=== PATIENT | female | born 1990 | race Asian ===

== ENCOUNTER 2020-09-02 12:15 | Inpatient (IN) ==
[2020-09-02] MEDS ORDERED: Buffered Lidocaine 1% SYRIN 1 ml INTRADERM ONE (13:02)
[2020-09-02] MEDS ORDERED: Lactated Ringers 1000 ml BAG 1,000 ML IV ONE ×2 (13:02→18:40)
[2020-09-02 13:36] LABS: ABS Eosinophils 0.1 10^3/ul (0-0.6); ABS Lymphocytes 1.5 10^3/ul (1.0-4.8); ABS Monocytes 0.5 10^3/ul (0-0.8); ABS Neutrophils 4.4 10^3/ul (1.5-7.7); Eosinophil % 0.8 %; Hematocrit 41 % (35-47); Hemoglobin 13.7 g/dL (12.0-16.0); Lymphocyte % 22.6 %; Mean Corpuscular HGB Conc 34 g/dL (31-36); Mean Corpuscular Hemoglobin 32 pg (27-31); Mean Corpuscular Volume 95 fL (80-97); Mean Platelet Volume 9.6 fL (7.4-10.4); Nucleated Red Blood Cells % 0.1; Platelet Count 126 10^3/uL (150-450); Red Blood Count 4.28 10^6 /uL (3.70-4.87); Red Cell Distribution Width 14 % (10-15); White Blood Count 6.5 10^3/uL (3.5-10.8)
[2020-09-02 14:08] LABS: Urine Benzodiazepine Screen None Detected (None Detect); Urine Cannabinoids Screen None Detected (None Detect); Urine Opiates Screen None Detected (None Detect)
[2020-09-02] MEDS: Lactated Ringers 1000 ml BAG 1,000 ML IV SCH ×2 (14:28→20:15)
[2020-09-02] MEDS ORDERED: Oxytocin in LR 20 UNITS/1,000 ML BAG IVPB SCH (15:00)
[2020-09-02] MEDS ORDERED: OBEPIDURAL 250 ML EPIDURAL ONE (17:50)
[2020-09-02] MEDS ORDERED: Sodium Citrate/Citric Acid LIQ 15 ML UDC PO PRN (18:40)
[2020-09-02] MEDS ORDERED: Lactated Ringers 1000 ml BAG 1,000 ML IV SCH (19:00)
[2020-09-03] MEDS ORDERED: fentaNYL 100 mcg/2 ml 50 MCG/ML VIAL ONE (03:53)
[2020-09-03] MEDS ORDERED: Lidocaine 1% MPF 5 ML VIAL ONE (03:53)
[2020-09-03] MEDS ORDERED: Dibucaine 1% OINT 28.35 GM TUBE PR PRN (04:25)
[2020-09-03] MEDS ORDERED: Witch Hazel PAD JAR TOPICAL PRN (04:25)
[2020-09-03] MEDS ORDERED: Methylergonovine 0.2 mg AMPULE 1 ml AMP IM ONE (04:25)
[2020-09-03] MEDS ORDERED: Glycerin ADULT 2.4 gm SUPP PR PRN (04:25)
[2020-09-03] MEDS ORDERED: Lactated Ringers 1000 ml BAG 1,000 ML IV SCH (05:00)
[2020-09-03] MEDS ORDERED: Oxytocin in LR 20 UNITS/1,000 ML BAG IVPB SCH (05:00)
[2020-09-03 05:43] LABS: ABS Lymphocytes 0.6 10^3/ul (1.0-4.8); ABS Monocytes 0.9 10^3/ul (0-0.8); ABS Neutrophils 12.7 10^3/ul (1.5-7.7); Hematocrit 34 % (35-47); Hemoglobin 11.6 g/dL (12.0-16.0); Mean Corpuscular HGB Conc 34 g/dL (31-36); Mean Corpuscular Hemoglobin 32 pg (27-31); Mean Corpuscular Volume 94 fL (80-97); Mean Platelet Volume 10.4 fL (7.4-10.4); Platelet Count 111 10^3/uL (150-450); Red Blood Count 3.58 10^6 /uL (3.70-4.87); Red Cell Distribution Width 13 % (10-15); White Blood Count 14.2 10^3/uL (3.5-10.8)
[2020-09-03] MEDS ORDERED: ceFAZolin 1 GM ADVAN 1 GM in NS 0.9% 50 ML 50 ML IVPB ONE (05:44)
[2020-09-03 05:48] LABS: Platelet Count 111 10^3/ul (150-450)
[2020-09-03 06:22] LABS: Activated Partial Thrombo Time 23.9 seconds (26.0-38.0); Fibrinogen 353.9 mg/dL (110.8-404.3); INR 0.93 (0.82-1.09)
[2020-09-03 07:16] LABS: Schistocytes ABSENT
[2020-09-03] MEDS: Lactated Ringers 1000 ml BAG 1,000 ML IV SCH ×2 (07:55→16:41)
[2020-09-03] MEDS: OBEPIDURAL 250 ML EPIDURAL SCH (09:02)
[2020-09-03 09:10] LABS: Urine Appearance Cloudy; Urine Bilirubin Negative (Negative); Urine Blood 3+ (Negative); Urine Glucose Negative (Negative); Urine Ketones 2+ (Negative); Urine Nitrite Negative (Negative); Urine Protein 2+(100 mg/dL) (Negative); Urine Specific Gravity 1.016 (1.002-1.030); Urine Urobilinogen Negative (Negative)
[2020-09-03 09:15] LABS: Urine Color Amber
[2020-09-03 09:17] LABS: Urine Bacteria Absent (Absent); Urine Red Blood Cell 3+(>10/hpf) (Absent); Urine White Blood Cell 1+(6-10/hpf) (Absent)
[2020-09-03 11:59] LABS: ABS Lymphocytes 1.3 10^3/ul (1.0-4.8); ABS Monocytes 0.8 10^3/ul (0-0.8); ABS Neutrophils 10.9 10^3/ul (1.5-7.7); Eosinophil % 0.1 %; Hematocrit 31 % (35-47); Hemoglobin 10.8 g/dL (12.0-16.0); Lymphocyte % 9.8 %; Mean Corpuscular HGB Conc 35 g/dL (31-36); Mean Corpuscular Hemoglobin 33 pg (27-31); Mean Corpuscular Volume 93 fL (80-97); Mean Platelet Volume 10.4 fL (7.4-10.4); Platelet Count 114 10^3/uL (150-450); Red Blood Count 3.32 10^6 /uL (3.70-4.87); Red Cell Distribution Width 14 % (10-15)
[2020-09-03] MEDS ORDERED: Ammonia Inhalant 1 EA AMP ONE ×2 (14:05→21:38)
[2020-09-04] MEDS ORDERED: Lidocaine 1% VIAL 10 MG/ML VIAL ONE (00:41)
[2020-09-04 08:37] LABS: ABS Basophils 0.1 10^3/ul (0-0.2); ABS Lymphocytes 1.3 10^3/ul (1.0-4.8); ABS Monocytes 0.6 10^3/ul (0-0.8); ABS Neutrophils 9.9 10^3/ul (1.5-7.7); Eosinophil % 0.2 %; Hematocrit 31 % (35-47); Hemoglobin 10.6 g/dL (12.0-16.0); Lymphocyte % 11.2 %; Mean Corpuscular HGB Conc 34 g/dL (31-36); Mean Corpuscular Hemoglobin 32 pg (27-31); Mean Corpuscular Volume 95 fL (80-97); Mean Platelet Volume 9.8 fL (7.4-10.4); Platelet Count 124 10^3/uL (150-450); Red Blood Count 3.31 10^6 /uL (3.70-4.87); Red Cell Distribution Width 14 % (10-15)
[2020-09-04] MEDS: OBEPIDURAL 250 ML EPIDURAL SCH (10:42)
[2020-09-05 07:45] VITALS: BP 99/56
== END 2020-09-05 13:50 | disposition home or self-care (01) | DRG 542 ==
LOC: MCHOBOUT 12:15 → MCHOB 13:03
PROVIDERS: ADMIT Obstetrics & Gynecology; ATTEND Obstetrics & Gynecology